=== PATIENT | female | born 1975 | race Caucasian/White ===

== ENCOUNTER 2023-03-01 09:47 | Outpatient (AMB) | payer OTHER, SELFPAY ==
--- NOTE | 2023-03-01 09:57 | A.OFFPC_ITS ---
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 pap smear Is last menstrual period known: Yes Last menstrual period: 02/08/23 Post menopausal: No Patient : No Allergies Erythromycin Allergy (Mild, Uncoded 03/01/23 10:14) Hives penicillin Allergy (Mild, Uncoded 03/01/23 10:14) Hives Medication List - Last Reconciled 03/01/23 by Citlali Rudolph MD methadone 120 mg PO DAILY Tobacco use date assessed: 03/01/23 Dental Screening Dental Screen Date: 03/01/23 Did you have a dental visit in the last 12 months?: Yes Did you have a dental problem in the last 6 months where you did not have access to dental care?: No Was dental information given to patient?: Patient has dentist HPI 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 HPI Comments History of Present Illness Details 47-year-old lady, new to practice, here to establish care with new PCP and for her physical exam. She is due for her cervical cancer screening. Currently smokes cigarettes at least 10 a day, has history of opiate abuse, currently being seen at [facility] where she is getting her methadone treatment. She has been feeling well with no other complaints at present time [facility] Medical History (Updated 03/01/23 @ 10:50 by Citlali Rudolph MD) Cigarette smoker motivated to quit Methadone use History of opioid abuse Family History (Updated 03/01/23 @ 10:40 by Citlali Rudolph MD) Father Liver cancer Paternal Grandfather Prostate cancer Social History Housing: House Patient Tobacco Use Status: Current everyday Tobacco user Tobacco use type: Cigarette Cigarettes Per Day: 10 e-Cigarette/Vaping Use: Never Used service: No Current occupational status: unemployed Cognitive needs: No Hearing needs: No Vision needs: Yes Female Reproductive History Menstrual Date of last menstrual period: 02/08/23 Questionnaire PHQ-9 Over the last 2 weeks, how often have you been bothered by any of the following problems? 1. Little interest or pleasure in doing things: not at all 2. Feeling down, depressed, or hopeless: not at all 3. Trouble falling or staying asleep, or sleeping too much: several days 4. Feeling tired or having little energy: several days 5. Poor appetite or overeating: several days 6. Feeling bad about yourself - or that you are a failure or have let yourself or your family down: not at all 7. Trouble concentrating on things, such as reading the newspaper or watching television: not at all 8. Moving or speaking so slowly that other people could have noticed. Or the op posite - being so fidgety or restless that you have been moving around a lot more than usual: not at all 9. Thoughts that you would be better off or of hurting yourself in some way: not at all Total score: 3 Depression Screening Interpretation: Negative Depression Screening Done: Yes 67270 - PHQ-9 Billing: Yes Source: Developed by Drs. Anish Pichardo, Sussy Wise, Ishmael Ochoa and colleagues, with an educational nataly from [employer]. Thrive Questionnaire Date Thrive assessed: 03/01/23 I am a: Patient What is your living situation today?: I have a steady place to live Within the past 12 months, did the food you bought not last and you didn't have the money to get more?: Never true Within the past 12 months, did you worry whether your food would run out before you got money to buy more?: Never true Do you have trouble paying for medicines?: No Do you have trouble getting transportation to medical appointments?: No Do you have trouble paying your heating and electricity bill?: No Do you have trouble taking care of your child, family member or friend?: No Do you have trouble with day-to-day activities such as bathing, preparing meals, shopping, managing finances, etc.?: No Are you currently unemployed and looking for a job?: No Are you interested in more education?: No AUDIT C Alcohol Use Questionnaire (AUDIT-C) 1. How often do you have a drink containing alcohol?: Never Total Score: 0 SPENCER-7 AMB Questionnaire SPENCER-7 Date SPENCER - 7 assessed: 03/01/23 Feeling nervous, anxious, or on edge: 0 = Not at all Not being able to stop or control worryin = Not at all Worrying too much about different things: 0 = Not at all Trouble relaxin = Several days Being so restless that it is hard to sit still: 0 = Not at all Becoming easily annoyed or irritable: 1 = Several days Feeling afraid as if something awful might happen: 0 = Not at all Total SPENCER-7 score (0-4 normal; 5-9 mild; 10-14 moderate; 15-21 severe): 2 Source: Developed by Drs. Anish Pichardo, Sussy Wise, Ishmael Ochoa and colleagues, with an educational nataly from [employer]. SPENCER-7 Assessment Billing SPENCER-7 Assessment Tool: SPENCER-7 Assessment 37675 Review of Systems Const Denies body aches, Denies fatigue, Denies fever(s), Denies headache(s) and Denies weakness Eyes Details: Goes to [employer], wears reading glasses Denies change in vision, Denies eye discharge and Denies itchy eyes ENT Denies dizziness, Denies headache(s), Denies nasal congestion, Denies nasal discharge and Denies sore throat Card Denies chest pain, Denies lightheadedness, Denies palpitations and Denies dyspnea Resp Denies chest congestion, Denies cough, Denies dyspnea and Denies wheezing GI Denies abdominal pain, Denies change in bowel habits and Denies heartburn Denies hematuria, Denies urinary frequency, Denies dysuria and Denies urinary urgency Musc Reports no additional complaints Skin/Breast Denies breast pain, Denies breast mass, Denies lesions and Denies rash Neuro Denies dizziness, Denies headache(s) and Denies weakness Psych Reports no additional complaints Endo Denies fatigue, Denies polydipsia, Denies polyuria and Denies palpitations Eugene/Lymph Denies easy bruising Aller/Immun Denies itchy eyes, Denies seasonal rhinorrhea and Denies wheezing Physical exam (Primary Care) Vital Signs: Last Vital Signs Pulse 62 03/01/23 10:03 BP 128/72 03/01/23 10:03 Pulse Ox 98 03/01/23 10:03 BMI result Body Mass Index 28.5 Tobacco/Smoking Status: Tobacco use Status Tobacco use date assessed 03/01/23 03/01/23 10:03 Patient Tobacco Use Status Current everyday Tobacco 03/01/23 10:03 Tobacco use type Cigarette 03/01/23 10:03 e-Cigarette/Vaping Use Never Used 03/01/23 10:03 PHQ-9: PHQ-9 Score PHQ-9: Total score 3 03/01/23 11:11 Depression Screening Interpretation: Negative Thrive Assessment: Date of Thrive Assessment Date Thrive assessed 03/01/23 03/01/23 10:10 Const General: healthy appearing, comfortable, no acute distress, alert, awake and Physically active Nutritional Appearance: overweight Orientation/consciousness: patient oriented x3 HENMT Head: Yes normocephalic Ears: hearing grossly normal bilaterally General nose exam: Normal external nose present Face and sinus: Yes face symmetric Mouth: Normal oral and palatal mucosa present, lip normal, tongue normal, oropharynx normal and moist mucous membranes Eyes General: appearance normal, both eyes and all related structures Neck Neck: Yes full ROM, Yes no lymphadenopathy, Yes no meningeal signs and Yes supple Thyroid: Thyroid normal (Nonpalpable) Chest Chest palpation & inspection: normal inspection of the chest Breast/axilla inspection: normal inspection of the breasts Breast/axilla palpation: normal palpation of the breasts Resp Effort & Inspection: normal respiratory effort and able to speak in complete sentences Auscultation: clear to auscultation bilaterally Cardio Rate: regular rate Rhythm: regular rhythm Heart sounds: S1 normal heart sound present and S2 normal heart sound present GI Inspection: Yes normal to inspection Palpation (GI): Soft to palpation, nontender, no guarding and no masses General: Yes bladder normal to palpation and Yes no CVA tenderness External Female Exam: normal external appearance and normal appearance of the urethra Speculum Exam - Vagina: normal appearance of the vagina, normal palpation and normal vaginal discharge Speculum Exam - Cervix: normal appearance of the cervix, normal palpation and nontender Bimanual exam- vagina & uterus: normal palpation, uterine size normal, bladder normal to palpation, normal palpation, No Cervical tenderness present and non- tender Bimanual Exam- Adnexa, other: normal adnexae, no masses, normal and No adnexal tenderness Back/Spine/Pelvis Back: no CVA tenderness and No back tenderness Skin General skin exam: no rashes or lesions noted and other (Tattoos noted on upper and lower back) Neuro General: patient oriented x3, gait normal, tone normal, moves all extremities, Normal light touch and pain sensation, no meningeal signs, no focal motor deficits and CN's II-XI intact bilaterally Extrem General: Yes full ROM, Yes no joint enlargement, Yes no clubbing, cyanosis or edema and Yes normal gait Psych Appearance: well kempt Mental Status: mental status grossly normal Speech and movement: Normal speech and movement present Affect: normal affect Attitude: cooperative Thought process: Normal thought process present Thought content: Normal thought content present Office Procedures Flu Questionnaire Does the patient have a severe egg allergy?: No Does the patient have severe life threatening allergies?: No Does the patient have a fever or illness today?: No Has the patient ever had Guillain-[place] Syndrome?: No Has the patient ever had any past reaction to a flu shot?: No Immunizations flu vacc [id number] 6mos up(PF) 60 mcg(15 mcgx4)/0.5 mL IM syringe Performing Provider: Citlali Rudolph MD Performing Location: [facility] Administered by: Skye Preston CMA on 03/01/23 11:11 Dose Route Admin Location Dispensed Lot Number Expiration Date NDC 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 Recommended dental visit every 6 months and regular eye exams, at least every 2 years, sees [facility]. Take adequate calcium in diet and vitamin-D 3 at 2000 IU per cap once a day, in addition to weight-bearing exercises to help maintain good muscle tone and weight control. Instructed to do self-breast exam, and recommended to get yearly mammogram, starting at age 40, ordered. Due for her colon cancer screening, per patient prefers to do the Cologuard testing, will check with insurance if covered and will let me know so that test can be ordered. Flu shot given today, reminded to get her COVID booster, will give Tdap on next visit (2) Cervical cancer screening: Code(s): Z12.4 - Encounter for screening for malignant neoplasm of cervix Plan: Pap smear done (3) Skin cancer screening: Code(s): Z12.83 - Encounter for screening for malignant neoplasm of skin Plan: Dermatology consult ordered (4) Methadone use: Comment: Currently being seen at [facility] , started 2 years ago Code(s): F11.90 - Opioid use, unspecified, uncomplicated (5) Cigarette smoker motivated to quit: Code(s): F17.210 - Nicotine dependence, cigarettes, uncomplicated Plan: Prescription sent for nicotine lozenges, to use as directed. Orders: Orders Lipid Panel 03/01/23 Z00.01 - Encounter for general adult medical examination with abnormal findings, Z13.220 - Encounter for screening for lipoid disorders, Z13.1 - Encounter for screening for diabetes mellitus, F11.11 - Opioid abuse, in remission Comprehensive [place]. Panel Fast 03/01/23 Z00.01 - Encounter for general adult medical examination with abnormal findings, Z13.220 - Encounter for screening for lipoid disorders, Z13.1 - Encounter for screening for diabetes mellitus, F11.11 - Opioid abuse, in remission Vitamin D 25-OH Total 03/01/23 Z00.01 - Encounter for general adult medical examination with abnormal findings, Z13.220 - Encounter for screening for lipoid disorders, Z13.1 - Encounter for screening for diabetes mellitus, F11.11 - Opioid abuse, in remission Influenza [id number] Immunization 03/01/23 Z23 - Encounter for immunization MM screening mammo BI 03/01/23 Z12.31 - Encounter for screening mammogram for malignant neoplasm of breast, Z00.01 - Encounter for general adult medical examination with abnormal findings Pap Smear 03/01/23 Z12.4 - Encounter for screening for malignant neoplasm of cervix Complete Blood Count Auto Diff 03/01/23 Z00.01 - Encounter for general adult medical examination with abnormal findings, Z13.220 - Encounter for screening fo r lipoid disorders, Z13.1 - Encounter for screening for diabetes mellitus, F11.11 - Opioid abuse, in remission Referrals Dermatology Referral Z12.83 - Encounter for screening for malignant neoplasm of skin Medications: New nicotine (polacrilex) 4 mg buccal Q8H PRN 72 ea 0RF nicotine cravings Coding Level of Care Code New Pt Prev Care 40-64y(38834) Diagnoses Annual visit for general adult medical examination with abnormal findings Z00.01 Cervical cancer screening Z12.4 Skin cancer screening Z12.83 Methadone use F11.90 Cigarette smoker motivated to quit F17.210 Additional Codes SPENCER-7 Assessment Billing - SPENCER-7 Assessment Tool: SPENCER-7 Assessment 62467 ([id number])
[2023-03-01 10:03] VITALS: BP 128/72; PULSE 62; O2SAT 98; BMI 28.5
== END 2023-03-01 11:37 | disposition home or self-care (01) ==
PROVIDERS: Visit Provider Internal Medicine
DX: Z00.00 Encounter for general adult medical examination without abnormal findings (principal); F11.90 Opioid use, unspecified, uncomplicated; F17.210 Nicotine dependence, cigarettes, uncomplicated
CPT/HCPCS: 90471; 90686; 99386

== ENCOUNTER 2023-03-01 12:04 | Outpatient (REF) | payer OTHER, SELFPAY ==
[2023-03-03 22:39] LABS: HPV mRNA E6/E7 rflx Not Detected (Not Detected)
== END 2023-03-01 12:05 | disposition home or self-care (01) ==
LOC: HO.LAB 12:04
PROVIDERS: Visit Provider Internal Medicine
DX: Z12.4 Encounter for screening for malignant neoplasm of cervix (principal); Z11.51 Encounter for screening for human papillomavirus (HPV)
CPT/HCPCS: 87624; 88142

== ENCOUNTER 2023-04-11 12:08 | Outpatient (REF) | payer OTHER, SELFPAY ==
--- NOTE | ~2023-04-11 | MM_ITS ---
EXAMINATION: MM SCREENING DIGITAL BREAST TOMOSYNTHESIS, BILATERAL CLINICAL INFORMATION: Screening. Asymptomatic. COMPARISON: Mammography: This is a baseline mammogram. TECHNIQUE: Digital breast tomosynthesis is performed in both the craniocaudal and mediolateral oblique views along with computer-aided detection (CAD). Synthesized 2D images are generated from the tomosynthesis. FINDINGS: The breasts are almost entirely fatty (ACR BI-RADS breast composition Category a). There are no significant masses, abnormal calcifications, or other abnormalities. MM/MM tomosynthesis screening BI IMPRESSION: No mammographic evidence of malignancy. ASSESSMENT: BI-RADS BI-RADS 1 - Negative RECOMMENDATION: Routine annual mammography screening. 1 year F/U This examination should not preclude the clinical evaluation of a suspicious palpable abnormality. This patient's information was entered into a reminder system with a target due date for their next mammogram.
== END 2023-04-11 12:09 | disposition home or self-care (01) ==
LOC: HO.MAMMO 12:08
PROVIDERS: PCP Internal Medicine; Visit Provider Internal Medicine
DX: Z12.31 Encounter for screening mammogram for malignant neoplasm of breast (principal)
CPT/HCPCS: 77063; 77067

== ENCOUNTER → 2023-04-11 12:15 | Outpatient (BNV) | payer OTHER, SELFPAY | PROVIDERS: PCP Internal Medicine; Visit Provider Radiology Diagnostic Radiology | DX: Z12.31 Encounter for screening mammogram for malignant neoplasm of breast (principal) | CPT/HCPCS: 77063; 77067 ==